=== PATIENT | male | born 1965 | race American Indian/Alaskan Native ===

== ENCOUNTER 2018-11-01 10:29 | Observation (INO) | payer BC ==
[2018-10-25 11:02] LABS: Basophils # (Auto) 0.1 K/mm3 (0.0-0.1); Basophils % (Auto) 1.9 % (0.0-1.8); Eosinophils # (Auto) 0.1 K/mm3 (0.0-0.4); Eosinophils % (Auto) 2.2 % (0.0-4.3); Hematocrit 46.4 % (35.5-45.6); Hemoglobin 15.7 gm/dl (11.8-15.2); Lymphocytes # (Auto) 1.5 K/mm3 (1.2-5.4); Lymphocytes % (Auto) 46.1 % (13.4-35.0); Mean Corpuscular HGB Conc 34 % (32-34); Mean Corpuscular Volume 90 fl (84-94); Monocytes # (Auto) 0.4 K/mm3 (0.0-0.8); Platelet Count 184 K/mm3 (140-440); Red Blood Count 5.13 M/mm3 (3.65-5.03); Red Cell Distribution Width 13.6 % (13.2-15.2)
[2018-10-25 11:12] LABS: INR 0.87 (0.87-1.13)
[2018-10-25 11:13] LABS: Partial Thromboplastin Time 23.5 Sec. (24.2-36.6)
--- NOTE | 2018-10-25 11:16 | Anesthesia Consultation ---
Anesthesia Consult and Med Hx Date of service: 10/25/18 - Airway Anesthetic Teeth Evaluation: Good ROM Head & Neck: Adequate Mental/Hyoid Distance: Adequate Mallampati Class: Class II Intubation Access Assessment: Probably Good - Pulmonary Exam CTA: Yes - Cardiac Exam Cardiac Exam: RRR - Pre-Operative Health Status ASA Pre-Surgery Classification: ASA2 Proposed Anesthetic Plan: General - Pulmonary Hx Smoking: Yes (STOPPED X 20 YRS ( 1/2 PPD X 22 YRS)) Hx Respiratory Symptoms: No COPD: No Hx Sleep Apnea: Yes (compliant with CPAP) - Cardiovascular System Hx Hypertension: No Hx Heart Attack/AMI: No Hx Cardia Arrhythmia: No - Central Nervous System CVA: No Hx Psychiatric Problems: Yes (PTSD/anxiety) - Gastrointestinal Hx Gastroesophageal Reflux Disease: No - Endocrine Hx Renal Disease: No Hx Liver Disease: No Hx Insulin Dependent Diabetes: No Hx Non-Insulin Dependent Diabetes: No Hx Thyroid Disease: No - Other Systems Hx Obesity: Yes - Additional Comments Anesthesia Medical History Comments: No hx anesthetic complications.
[2018-10-25 11:22] LABS: Alanine Aminotransferase 37 units/L (7-56); Albumin 3.9 g/dL (3.9-5); BUN/Creatinine Ratio 17; Blood Urea Nitrogen 15 mg/dL (9-20); Calcium 8.9 mg/dL (8.4-10.2); Hemolysis Index 11
[~2018-11-01 10:29] MED LIST: LACTATED RINGERS 1,000 ML IV SCH
[2018-11-01] MEDS ORDERED: SUBLIMAZE IV PRN (10:50)
--- NOTE | 2018-11-01 10:50 | Anesthesia Day of Surgery ---
Anesthesia Day of Surgery - Day of Surgery Patient Examined: Yes Patient H&P Reviewed: Yes Patient is NPO: Yes
[2018-11-01] MEDS: VERSED IV NR ×2 (11:35→12:05)
[2018-11-01] MEDS ORDERED: DIPRIVAN 10 MG/ML IV ONE (11:44)
[2018-11-01] MEDS ORDERED: XYLOCAINE MPF 2% ONE (11:44)
[2018-11-01] MEDS ORDERED: SUBLIMAZE ONE ×2 (11:44→12:52)
[2018-11-01] MEDS ORDERED: ANCEF/STERILE WATER 2 GM/20 ML IV NR (13:00)
[2018-11-01] MEDS ORDERED: ZOFRAN ONE (13:27)
[2018-11-01] MEDS ORDERED: NACL 0.9% IR ONE (13:29)
[2018-11-01] MEDS ORDERED: TYLENOL PO PRN (13:41)
[2018-11-01] MEDS ORDERED: ZOFRAN IV PRN (13:41)
[2018-11-01] MEDS ORDERED: NACL 0.9% IR PRN (13:41)
[2018-11-01] MEDS ORDERED: AMBIEN PO PRN (13:41)
--- NOTE | 2018-11-01 13:46 | Post Operative Note ---
Date of procedure: 11/01/18 Pre-op diagnosis: bph midddle lobe Post-op diagnosis: same Findings: as above Procedure: cysto turp Anesthesia: GETA Surgeon: MAKENZIE AGUILLON Estimated blood loss: 50-100ml Pathology: list (prostate) Specimen disposition: to lab Condition: stable Disposition: PACU
--- NOTE | 2018-11-01 14:26 | Operative Report ---
PREOPERATIVE DIAGNOSIS: Intermittent retention, prostatic enlargement with enlargement of lobe obstructive voiding pattern. POSTOPERATIVE DIAGNOSIS: Intermittent retention, prostatic enlargement with enlargement of lobe obstructive voiding pattern. PROCEDURE: Cystoscopy, transurethral resection of prostate, mostly middle lobe extending into the bladder. SURGEON: Davi Spangler M.D. ANESTHESIA: General. FINDINGS: This is a gentleman with progressive difficulty voiding. He has a prominent middle lobe. We discussed all the options, now presents for a TURP. DESCRIPTION OF PROCEDURE: The patient was brought to the operating room and placed on the operating table. Following induction of anesthesia, placed in lithotomy position, prepped and draped in usual sterile fashion. Cystourethroscopy showed the middle lobe. The trigone was well away and there was a small trabeculation. He now presents for treatment. The patient was brought to the operating room and placed on the operating table. Following the induction of anesthesia, cystoscopy was carried out as mentioned. Resectoscope was placed and we used the larger loop with the bipolar. Resection of middle lobe was carried down to capsular fibers. This was well away from the trigone. The trigone was spared and not injured. There was no significant damage to the sphincter. The right lobe was prominent which was extended to the middle lobe, which was resected. We did minimal resection of left lobe. It was wide open. The patient tolerated the procedure well. The sphincter mechanism appeared to be intact. We did not resect distal to the verumontanum. All the chips were evacuated out with the Yozio evacuator. Hemostasis was assured with the button, and he was brought to recovery room with minimal blood loss in stable condition. JOB# [id number] LIS/LA NENA
--- NOTE | 2018-11-01 16:37 | Post Anesthesia Evaluation ---
- Post Anesthesia Evaluation Patient Participated: Yes Airway Patent: Yes Stable Respiratory Function: Yes Nausea/Vomiting: No Temp > 96.8F: Yes Pain Manageable: Yes Adequeate Hydration: Yes Anesthesia Complications: No
[2018-11-01] MEDS: PERCOCET 5/325 PO PRN (16:58)
[2018-11-01] MEDS: NACL 0.9% IR SCH ×6 (20:13→23:53)
[2018-11-01] MEDS: ANCEF/NS 1 GM/50 ML 1 GM/50 ML BAG IV SCH (21:22)
[2018-11-01] MEDS: COLACE PO SCH (21:22)
[2018-11-02] MEDS: NACL 0.9% IR SCH ×5 (02:16→07:30)
[2018-11-02] MEDS: ANCEF/NS 1 GM/50 ML 1 GM/50 ML BAG IV SCH (05:19)
[2018-11-02] MEDS: PERCOCET 5/325 PO PRN (05:19)
[2018-11-02 08:25] VITALS: BP 102/69
--- NOTE | 2018-11-02 08:28 | Progress Note ---
Assessment and Plan urine clear home today with cath Subjective Date of service: 11/02/18 Principal diagnosis: BAIG Objective - Constitutional Vitals: Vital Signs - 12hr 11/01/18 11/01/18 11/02/18 22:55 23:58 03:56 Temperature 98.1 F 99.2 F Pulse Rate 77 83 Respiratory 18 19 19 Rate Blood Pressure 110/69 106/61 O2 Sat by Pulse 99 97 Oximetry 11/02/18 11/02/18 11/02/18 05:19 07:43 07:44 Temperature 98.6 F Pulse Rate 78 80 Respiratory 18 18 Rate Blood Pressure 102/69 O2 Sat by Pulse 99 98 Oximetry General appearance: Present: no acute distress - Neck Neck: supple - Respiratory Respiratory effort: normal Extremities: no ischemia - Gastrointestinal General gastrointestinal: Present: soft, non-tender - Labs CBC & Chem 7: 10/25/18 10:30 10/25/18 10:30 Medications & Allergies - Medications Allergies/Adverse Reactions: Allergies No Known Allergies Allergy (Verified 08/05/15 13:04) Home Medications: Home Medications Medication Instructions Recorded Confirmed Last Taken Type Mirtazapine [Remeron 30mg TAB] 30 mg PO QHS 10/20/18 10/20/18 10/31/18 History Tamsulosin [Flomax] 0.4 mg PO QDAY 10/20/18 10/20/18 10/31/18 History Active Medications: Generic Name Dose Route Start Last Admin Trade Name Freq PRN Reason Stop Dose Admin Acetaminophen 650 mg 11/01/18 13:41 Tylenol PO Q4H PRN Pain MILD(1-3)/Fever >100.5/CHASE Docusate Sodium 100 mg 11/01/18 22:00 11/01/18 21:22 Colace PO 100 mg BID LAUERN Administration Lactated Ringer's 1,000 mls @ 100 mls/hr 11/01/18 06:00 11/01/18 10:55 Lactated Ringers IV 100 mls/hr DIRECT LAUREN Administration Cefazolin Sodium 1 gm in 50 mls @ 100 mls/hr 11/01/18 21:00 11/02/18 05:19 Ancef/Ns 1 Gm/50 Ml IV 11/02/18 21:29 100 mls/hr Q8H LAUREN Administration Protocol Ondansetron HCl 4 mg 11/01/18 13:41 Zofran IV Q8H PRN Nausea And Vomiting Oxycodone/Acetaminophen 2 tab 11/01/18 13:41 11/02/18 05:19 Percocet 5/325 PO 2 tab Q6H PRN Administration Pain, Moderate (4-6) Sodium Chloride 30 ml 11/01/18 13:41 11/01/18 22:36 Nacl 0.9% IR 30 ml Q2H PRN Administration Wound Care Sodium Chloride 2,000 ml 11/01/18 14:00 11/02/18 05:28 Nacl 0.9% IR 2,000 ml DIRECT LAUREN Administration Zolpidem Tartrate 5 mg 11/01/18 13:41 Ambien PO QHS PRN Sleep
--- NOTE | 2018-11-02 08:29 | Discharge Summary ---
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
[2018-11-02] MEDS: COLACE PO SCH (09:25)
== END 2018-11-02 10:40 | disposition home or self-care (01) ==
LOC: OR 10:29 → 3B-SURG 13:41
PROVIDERS: ADMIT Urology; ATTEND Urology
DX: N40.1 Benign prostatic hyperplasia with lower urinary tract symptoms (principal)
CPT/HCPCS: 36415; 52601; 80053; 82962; 85025; 85610; 85730; 86850; 86900; 86901; 88305; 94760; 96365; 96366; A4217; G0378; J0690; J2250; J2405; J2704; J3010; J7120

== ENCOUNTER 2022-01-08 14:12 | Outpatient (CLI) | payer OTHER ==
--- NOTE | 2022-01-08 17:56 | Cat Scan Report ---
CT ABDOMEN AND PELVIS WITHOUT CONTRAST INDICATION / CLINICAL INFORMATION: RENAL CALCULUS. TECHNIQUE: Axial CT images were obtained through the abdomen and pelvis without IV contrast. All CT scans at this location are performed using CT dose reduction for ALARA by means of automated exposure control. COMPARISON: None available. FINDINGS: LOWER CHEST: No significant abnormality. AORTA / ARTERIES: No significant abnormality. IVC / VEINS: No significant abnormality. LYMPH NODES: No significant adenopathy. COLON: No significant abnormality. APPENDIX: No significant abnormality. STOMACH / SMALL BOWEL: No significant abnormality. PERITONEUM: No free fluid. No free air. No fluid collection. LIVER: No significant abnormality. GALLBLADDER: No significant abnormality. BILE DUCTS: No significant abnormality. PANCREAS: No significant abnormality. SPLEEN: No significant abnormality. ADRENALS: No significant abnormality. RIGHT KIDNEY / URETER: No significant abnormality. LEFT KIDNEY / URETER: No significant abnormality. URINARY BLADDER: No significant abnormality. REPRODUCTIVE ORGANS: No significant abnormality. SKELETAL SYSTEM: Scattered degeneration. ADDITIONAL FINDINGS: None. IMPRESSION: 1. No significant abnormality, specifically no nephrolithiasis or hydronephrosis.. Signer Name: Francesco Magdaleno DO Signed: 01/08/2022 5:52 PM Workstation Name: [id number]
== END 2022-01-08 14:13 | disposition home or self-care (01) ==
LOC: CT 14:12
PROVIDERS: ATTEND Nurse Practitioner
DX: Z01.89 Encounter for other specified special examinations (principal); N20.2 Calculus of kidney with calculus of ureter; N20.0 Calculus of kidney
CPT/HCPCS: 74176